=== PATIENT | female | born 1965 | race Caucasian/White ===

== ENCOUNTER 2016-11-26 06:35 | Emergency (ER) | payer OTHER ==
[~2016-11-26] VITALS: Ht 160 cm; Wt 99.8 kg
== END 2016-11-26 12:10 | disposition home or self-care (01) ==
LOC: ED 06:35
DX: T63.441A Toxic effect of venom of bees, accidental (unintentional), initial encounter (principal); Y92.89 Other specified places as the place of occurrence of the external cause

== ENCOUNTER 2024-12-13 23:29 | Emergency (ER) | payer SELFPAY ==
[2024-12-14 01:30] LABS: BILIRUBIN Negative (Negative); CLARITY Clear (Clear); COLOR Yellow (Yellow); KETONE Negative (Negative); NITRITE Negative (Negative); PH 6.0 (4.5-8.0); SPECIFIC GRAVITY 1.020 (1.001-1.030); UROBILINOGEN 0.2 E.U./dl (0.0-1.0)
[2024-12-14 01:37] LABS: URINE AMPHETAMINES Positive (1000ng/ml); URINE BARBITURATES Negative (200ng/ml); URINE BENZODIAZEPINES Negative (200ng/ml); URINE CANNABINOIDS (THC) Positive (50ng/ml); URINE COCAINE Positive (300ng/ml); URINE METHADONE Negative (300ng/ml); URINE OPIATES Negative (300ng/ml); URINE PHENCYCLIDINE Negative (25ng/ml)
[2024-12-14 01:48] LABS: BACTERIA 1+; BLOOD Trace-Lysed (Negative); EPITHELIAL CELLS 16-20; LEUKO ESTERASE Trace (Negative); MUCOUS 1+; WBC 16-20 wbc/hpf (0-5)
[2024-12-16] MEDS ORDERED: Naloxone Hydrochloride 2 MG/2 ML SYR IV ONE (13:51)
== END 2024-12-14 01:37 ==
LOC: ED 23:29
PROVIDERS: Emergency Medicine
DX: I46.9 Cardiac arrest, cause unspecified (principal); Z98.890 Other specified postprocedural states